=== PATIENT | female | born 1985 | race Caucasian/White ===

== ENCOUNTER 2017-10-10 13:46 | Observation (INO) ==
[2017-10-10] MEDS ORDERED: 0.9 % Sodium Chloride 1,000 ML IVC ONE ×2 (14:27→18:02)
[2017-10-10] MEDS ORDERED: *HR* Promethazine 25 MG/ML VIAL IVP ONE (14:27)
[2017-10-10] MEDS ORDERED: *HR* Nalbuphine 20 MG/ML AMPUL IVP PRN (14:28)
--- NOTE | 2017-10-10 14:31 | Emergency Department Note ---
Disposition Clinical Impression: Pyelonephritis, Right flank pain Disposition: Admitted As Inpatient Condition: Good Referrals: NONE,PCP [Primary Care Provider] - Forms: ED Satisfaction Letter, Work/School Release Time of Disposition: 18:02 Abdominal Pain HPI - General Chief Complaint: ED Abdominal Pain Stated Complaint: Right Abd Pain / LOVELACE Time Seen by Provider: 10/10/17 13:55 Source: patient Mode of arrival: ambulatory Limitations: no limitations Nursing Notes Reviewed: Yes Vital Signs Reviewed: Yes - History of Present Illness HPI Narrative: 31-year-old female presents emergency room for right-sided abdominal pain. Started in the right flank and radiated forward. She passed a kidney stone Harman morning. She still having a little bit of intermittent right-sided pain. She also complaining of a migraine headache. She states she has a history of kidney stones in the past. She denies any vomiting. No fevers or chills or Reiger's. No urinary complaints today. No GI complaints. No modifying factors. Pain Scale: 8 - Related Data Previous Rx's Medication Instructions Recorded Fluconazole [Diflucan] 150 mg PO Q72H #2 tablet 03/11/16 metroNIDAZOLE [Flagyl] 500 mg PO BID #14 tablet 03/11/16 Clotrimazole/Betamethasone Dip 15 gm TP BID 14 Days cream..g. 05/13/16 [Lotrisone Cream] Hydrocortisone 1% OINT [Cortaid] 1 appl TP BID 14 Days tube 05/13/16 Fexofenadine HCl 180 mg PO DAILY PRN #30 tablet 09/02/16 metroNIDAZOLE [Flagyl] 500 mg PO BID #14 tablet 09/02/16 Phenazopyridine HCl [Pyridium] 200 mg PO TIDAC #6 tab 02/11/17 Sulfamethoxazole/Trimeth DS 1 each PO BID #14 tablet 02/11/17 [Bactrim DS] metroNIDAZOLE [Flagyl] 2,000 mg PO ONCE 1 Days tablet 02/11/17 Diclofenac Sodium [Voltaren] 50 mg PO Q8HR #30 tablet. 02/12/17 metroNIDAZOLE [Flagyl] 500 mg PO BID #14 tablet 02/12/17 predniSONE [PredniSONE] 60 mg PO DAILY #15 tablet 02/12/17 Nitrofurantoin (BID) [Macrobid] 100 mg PO BID #14 capsule 08/16/17 metroNIDAZOLE [Flagyl] 500 mg PO BID #14 tablet 08/16/17 Allergies Allergy/AdvReac Type Severity Reaction Status Date / Time meperidine [From Demerol] Allergy Rash Verified 03/20/15 13:51 Penicillins AdvReac Vomiting Verified 03/20/15 13:51 All systems ED: reviewed and negative except as stated. Constitutional: Reports: as per HPI Eyes: Reports: as per HPI Cardiovascular: Reports: as per HPI Respiratory: Reports: as per HPI Gastrointestinal: Reports: abdominal pain Genitourinary: Reports: as per HPI Musculoskeletal: Reports: as per HPI, back pain Integumentary: Reports: as per HPI Neurological: Reports: as per HPI Psychiatric: Reports: as per HPI Endocrine: Reports: as per HPI Hematological/Lymphatic: Reports: as per HPI Allergic/Immunologic: Reports: as per HPI Abdominal Pain PMH - Past Medical History Medical history: Reports: kidney stones, other Female Surgical History: Reports: SPINNER CONTINUOUS history: Reports: no SPINNER CONTINUOUS history Psychiatric history: Reports: no psych history - Social History Smoking status: Current every day smoker Alcohol use: Reports: none Drug use: Reports: none Physical Exam - General Limitations: no limitations General appearance: alert - Head Head exam: atraumatic, normocephalic - Eye Eye exam: Present: normal appearance - Neck Neck exam: Present: normal inspection - Chest Chest inspection: Present: normal inspection - Respiratory Respiratory exam: Present: normal lung sounds bilaterally - Cardiovascular Cardiovascular exam: Present: regular rate, normal rhythm - Abdominal Exam Abdominal exam: Present: tenderness (Tenderness to the right side of her abdomen extending to the right flank. No guarding. No peritoneal signs.) - Extremities Exam Extremities exam: Present: normal inspection - Expanded Lower Extremity Exam Hip/Pelvis exam: Present: normal inspection - Neurological Exam Neurological exam: Present: alert, oriented X3 - Psychiatric Psychiatric exam: Present: normal affect, normal mood Course Vital Signs Temperature 99.3 F 10/10/17 13:48 Pulse Rate 146 10/10/17 13:48 Respiratory Rate 18 10/10/17 13:48 Blood Pressure 117/78 10/10/17 13:48 O2 Sat by Pulse Oximetry 97 10/10/17 13:48 Temperature 99.3 F 10/10/17 13:48 Pulse Rate 146 10/10/17 13:48 Respiratory Rate 18 03/04/18 13:48 Blood Pressure 117/78 10/10/17 13:48 O2 Sat by Pulse Oximetry 97 10/10/17 13:48 Oxygen Delivery Oxygen Delivery Room Air Abdominal Pain - MDM Narrative Medical decision making narrative: Patient has evidence of a pyelonephritis on the CT scan. She also has evidence of a urinary tract infection. White count 13,000. admitted for IV antibiotics. - Medical Records Medical records reviewed: Yes I reviewed the patient's medical records. - Lab Data Lab results reviewed: Yes I reviewed the patient's lab results. Result diagrams: 10/10/17 14:33 10/10/17 14:33 Lab Results 10/10/17 10/10/17 10/10/17 Range/Units 14:33 14:33 16:22 WBC 13.1 H (4.3-11.1) K/mcL RBC 4.01 (3.82-4.97) M/mcL Hgb 13.3 (11.5-15.4) g/dL Hct 38.6 (35.3-44.9) % MCV 96.3 (83.0-100.0) fL MCH 33.2 (28.0-33.3) pg MCHC 34.5 (31.6-35.5) g/dL RDW 11.1 L (11.5-14.5) % Plt Count 151 (140-400) K/mcL MPV 10.8 (9.4-12.4) fL Immature Gran % 0.5 (0-4) % Seg Neutrophils % 88.0 % Lymphocytes % 3.5 % Monocytes % 7.7 % Eosinophils % 0.2 % Basophils % 0.1 % Neutrophils # 11.5 H (1.6-8.9) K/mcL Lymphocytes # 0.5 L (0.6-4.6) K/mcL Monocytes # 1.0 (0.0-1.3) K/mcL Eosinophils # 0.0 (0.0-0.6) K/mcL Basophils # 0.0 (0.0-0.2) K/mcL Sodium 131 L (136-145) mEq/L Potassium 3.9 (3.5-5.1) mEq/L Chloride 103 (98-107) mEq/L Carbon Dioxide 22 L (23-29) mEq/L BUN 14 (6-20) mg/dL Creatinine 0.67 (0.60-1.20) mg/dL Est GFR ( Amer) > 60 (> 60) Est GFR (Non-Af Amer) > 60 (> 60) BUN/Creatinine Ratio 21 (6-26) Glucose 145 H (70-105) mg/dL Calculated Osmolality 275 L (280-300) Calcium 9.2 (8.6-10.3) mg/dL Total Bilirubin 0.4 (0.3-1.0) mg/dL Direct Bilirubin 0.1 (0.0-0.2) mg/dL Indirect Bilirubin 0.3 (0.0-1.2) mg/dL AST 14 (13-39) Units/L ALT 14 (7-52) Units/L Alkaline Phosphatase 80 (34-104) Units/L Serum Total Protein 6.6 (6.4-8.9) g/dL Albumin 3.8 (3.5-5.7) g/dL Globulin 2.8 (2.4-3.5) g/dL Albumin/Globulin Ratio 1.4 (1.1-2.2) Lipase < 3 L (11-82) Units/L Urine Color Yellow (Yellow) Urine Clarity Cloudy A (Clear) Urine pH 8.0 (5.0-8.0) pH Units Ur Specific [place] 1.021 (1.010-1.025) Urine Protein 100 H (Neg-Trace) mg/dL Urine Glucose (UA) Normal (Normal) mg/dL Urine Ketones Negative (Negative) mg/dL Urine Blood Moderate H (Negative) Urine Nitrite Negative (Negative) Urine Bilirubin Negative (Negative) Urine Urobilinogen Normal (Normal) mg/dL Ur Leukocyte Esterase Small H (Negative) Urine Microscopic RBC 30-50 H (0-3) per hpf Urine Microscopic WBC 30-50 H (0-3) per hpf Ur Squamous Epith Cells Many H (None-Few) per lpf Urine Bacteria Many H (None-Few) per hpf Hyaline Casts Few (None-Few) per lpf Ur Culture Indicated? NO. (NO) Urine Test (Negative) 10/10/17 Range/Units 16:22 WBC (4.3-11.1) K/mcL RBC (3.82-4.97) M/mcL Hgb (11.5-15.4) g/dL Hct (35.3-44.9) % MCV (83.0-100.0) fL MCH (28.0-33.3) pg MCHC (31.6-35.5) g/dL RDW (11.5-14.5) % Plt Count (140-400) K/mcL MPV (9.4-12.4) fL Immature Gran % (0-4) % Seg Neutrophils % % Lymphocytes % % Monocytes % % Eosinophils % % Basophils % % Neutrophils # (1.6-8.9) K/mcL Lymphocytes # (0.6-4.6) K/mcL Monocytes # (0.0-1.3) K/mcL Eosinophils # (0.0-0.6) K/mcL Basophils # (0.0-0.2) K/mcL Sodium (136-145) mEq/L Potassium (3.5-5.1) mEq/L Chloride (98-107) mEq/L Carbon Dioxide (23-29) mEq/L BUN (6-20) mg/dL Creatinine (0.60-1.20) mg/dL Est GFR ( Amer) (> 60) Est GFR (Non-Af Amer) (> 60) BUN/Creatinine Ratio (6-26) Glucose (70-105) mg/dL Calculated Osmolality (280-300) Calcium (8.6-10.3) mg/dL Total Bilirubin (0.3-1.0) mg/dL Direct Bilirubin (0.0-0.2) mg/dL Indirect Bilirubin (0.0-1.2) mg/dL AST (13-39) Units/L ALT (7-52) Units/L Alkaline Phosphatase (34-104) Units/L Serum Total Protein (6.4-8.9) g/dL Albumin (3.5-5.7) g/dL Globulin (2.4-3.5) g/dL Albumin/Globulin Ratio (1.1-2.2) Lipase (11-82) Units/L Urine Color (Yellow) Urine Clarity (Clear) Urine pH (5.0-8.0) pH Units Ur Specific [place] (1.010-1.025) Urine Protein (Neg-Trace) mg/dL Urine Glucose (UA) (Normal) mg/dL Urine Ketones (Negative) mg/dL Urine Blood (Negative) Urine Nitrite (Negative) Urine Bilirubin (Negative) Urine Urobilinogen (Normal) mg/dL Ur Leukocyte Esterase (Negative) Urine Microscopic RBC (0-3) per hpf Urine Microscopic WBC (0-3) per hpf Ur Squamous Epith Cells (None-Few) per lpf Urine Bacteria (None-Few) per hpf Hyaline Casts (None-Few) per lpf Ur Culture Indicated? (NO) Urine Test Negative (Negative) - Radiology Data Radiology results reviewed: Yes I reviewed the patient's radiology results. Critical Care Time Critical Care Time: No
[2017-10-10 15:06] LABS: Alanine Aminotransferase 14 Units/L (7-52); Albumin 3.8 g/dL (3.5-5.7); Albumin/Globulin Ratio 1.4 (1.1-2.2); Alkaline Phosphatase 80 Units/L (34-104); Aspartate Amino Transferase 14 Units/L (13-39); BUN/Creatinine Ratio 21 (6-26); Bilirubin,Direct 0.1 mg/dL (0.0-0.2); Bilirubin,Indirect 0.3 mg/dL (0.0-1.2); Bilirubin,Total 0.4 mg/dL (0.3-1.0); Blood Urea Nitrogen 14 mg/dL (6-20); Calcium 9.2 mg/dL (8.6-10.3); Carbon Dioxide 22 mEq/L (23-29); Chloride 103 mEq/L (98-107); Globulin 2.8 g/dL (2.4-3.5); Glucose 145 mg/dL (70-105); Lipase < 3 Units/L (11-82); Osmolality,Calculated 275 (280-300); Potassium 3.9 mEq/L (3.5-5.1); Sodium 131 mEq/L (136-145); Total Protein 6.6 g/dL (6.4-8.9); eGFR For African Americans > 60 (> 60); eGFR For Non-African Americans > 60 (> 60)
[2017-10-10 15:11] LABS: Basophils % 0.1 %; Eosinophils % 0.2 %; Hematocrit 38.6 % (35.3-44.9); Hemoglobin 13.3 g/dL (11.5-15.4); Immature Granulocytes % 0.5 % (0-4); Lymphocytes # 0.5 K/mcL (0.6-4.6); Lymphocytes % 3.5 %; Mean Corpuscular HGB Conc 34.5 g/dL (31.6-35.5); Mean Corpuscular Hemoglobin 33.2 pg (28.0-33.3); Mean Corpuscular Volume 96.3 fL (83.0-100.0); Mean Platelet Volume 10.8 fL (9.4-12.4); Monocytes % 7.7 %; Neutrophils # 11.5 K/mcL (1.6-8.9); Platelet Count 151 K/mcL (140-400); Red Blood Count 4.01 M/mcL (3.82-4.97); Red Cell Distribution Width 11.1 % (11.5-14.5)
[2017-10-10 16:52] LABS: Bilirubin,Urine Negative (Negative); Blood,Urine Moderate (Negative); Clarity,Urine Cloudy (Clear); Color,Urine Yellow (Yellow); Glucose,Urine (UA) Normal (Normal); Ketones,Urine Negative (Negative); Leukocyte Esterase,Urine Small (Negative); Nitrite,Urine Negative (Negative); Protein,Urine 100 mg/dL (Neg-Trace); Specific Gravity,Urine 1.021 (1.010-1.025); Urobilinogen,Urine Normal (Normal)
[2017-10-10 16:55] LABS: Bacteria,Urine Many per hpf (None-Few); Hyaline Casts,Urine Few per lpf (None-Few); RBC,Urine 30-50 per hpf (0-3); Squamous Epithelial Cell,Urine Many per lpf (None-Few); WBC,Urine 30-50 per hpf (0-3)
[2017-10-10] MEDS ORDERED: *HR* FentaNYL (PF) 100 MCG/2 ML VIAL IVP ONE ×2 (18:00→19:56)
[2017-10-10] MEDS ORDERED: cefTRIAXone 1,000 MG in Water for inj. (sterile) 20 ML 10 ML IVP ONE (18:00)
[2017-10-10] MEDS ORDERED: Ibuprofen 800 MG TABLET PO ONE (19:45)
[2017-10-10] MEDS ORDERED: Naloxone 0.4 MG/ML INJ IVP PRN (21:01)
[2017-10-10] MEDS ORDERED: Ondansetron 4 MG/2 ML VIAL IVP PRN (21:06)
--- NOTE | 2017-10-10 22:07 | Internal Med History&Physical ---
Date of Encounter: 10/10/17 Time of Encounter: 20:00 Assessment and Plan (1) Kidney stone Current visit: Yes Status: Acute (2) DVT prophylaxis Current visit: Yes Status: Acute Patient is young and ambulating, no anticoagulation at this point (3) Pyelonephritis Current visit: Yes Status: Acute CT abdomen shows no obstruction. Will continue Rocephin IV. Encourage patient to drink water. Follow-up urine culture (4) Tobacco abuse Current visit: Yes Status: Acute Nicotine patch. Smoking cessation education Internal Medicine - H&P: HPI Chief complaint: Right flank pain Admitted From: Home Plans for Post Hospital Care: Home History of present illness: Ms. Nguyen is a 31 year old female with history of kidney stone, tobacco abuse, presented to ER for right-sided flank pain for 1 day. Patient said on Wednesday, she feels she has passed small stones in her urine. Since Wednesday, she feels right-sided flank pain radiated to back. The pain is constant and getting worse gradually. Patient has a fever. Patient denies nausea vomiting diarrhea. In ER, CT abdomen shows possible right-sided pyelonephritis, without signs of hydronephrosis or hydroureterosis. Patient was admitted as acute pyelonephritis Past Med Surg Social Fam HX - Past Medical History Medical history: kidney stones, other Psychiatric history: no psych history - Past Surgical History Surgical History: - Social History Smoking Status: Current every day smoker Packs per day: 0.5 Smokeless Tobacco Status: No Alcohol use: none Drug use: none - Family History Mother Hx Family Cancer: Yes (lung) Internal Medicine - H&P: Meds Fluconazole [Diflucan] 150 mg PO Q72H #2 tablet 03/11/16 [Rx] metroNIDAZOLE [Flagyl] 500 mg PO BID #14 tablet 03/11/16 [Rx] Clotrimazole/Betamethasone Dip [Lotrisone Cream] 15 gm TP BID 14 Days cream..g. 05/13/16 [Rx] Hydrocortisone 1% OINT [Cortaid] 1 appl TP BID 14 Days tube 05/13/16 [Rx] Fexofenadine HCl 180 mg PO DAILY PRN #30 tablet 09/02/16 [Rx] metroNIDAZOLE [Flagyl] 500 mg PO BID #14 tablet 09/02/16 [Rx] Phenazopyridine HCl [Pyridium] 200 mg PO TIDAC #6 tab 02/11/17 [Rx] Sulfamethoxazole/Trimeth DS [Bactrim DS] 1 each PO BID #14 tablet 02/11/17 [Rx] metroNIDAZOLE [Flagyl] 2,000 mg PO ONCE 1 Days tablet 02/11/17 [Rx] Diclofenac Sodium [Voltaren] 50 mg PO Q8HR #30 tablet. 02/12/17 [Rx] metroNIDAZOLE [Flagyl] 500 mg PO BID #14 tablet 02/12/17 [Rx] predniSONE [PredniSONE] 60 mg PO DAILY #15 tablet 02/12/17 [Rx] Nitrofurantoin (BID) [Macrobid] 100 mg PO BID #14 capsule 08/16/17 [Rx] metroNIDAZOLE [Flagyl] 500 mg PO BID #14 tablet 08/16/17 [Rx] 3 Allergy/AdvReac Type Severity Reaction Status Date / Time meperidine [From Demerol] Allergy Rash Verified 03/20/15 13:51 Penicillins AdvReac Vomiting Verified 03/20/15 13:51 All Systems PM: A 10-system review of systems was performed and is negative for pertinent findings except as documented above in the HPI. - Constitutional Vitals: Temp Pulse Resp BP Pulse Ox 99.9 F H 105 16 146/81 96 10/10/17 20:26 10/10/17 20:26 10/10/17 20:26 10/10/17 20:26 10/10/17 20:26 General appearance: Present: A&O X 3, no acute distress, answers questions appropriately - Head Head exam: Present: atraumatic, normocephalic - Eye Eye exam: Present: PERRL, conjuntiva pink, sclera anicteric Pupils: Present: PERRL - Neck Neck exam general surgery: Present: supple, trachea midline. Absent: lymphadenopathy - Respiratory Respiratory exam: Present: CTAB. Absent: accessory muscle use, rales, rhonchi, wheezes - Cardiovascular Cardiovascular exam: Present: RRR, +S1, +S2. Absent: diastolic murmur, gallop, rubs, systolic murmur - GI/Abdominal GI/Abdominal exam: Present: normal bowel sounds, soft, no peritoneal signs. Absent: distended, tenderness Additional comments: CVAT positive on the right side - Extremities Exam Extremities exam: Present: warm, radial pulses palpable and symmetrical. Absent : calf tenderness, cyanotic, pedal edema - Neurological Exam Neurological exam: Present: CN II-XII intact, oriented X3, no focal deficits. Absent: pronater drift, facial droop, speech deficit - Skin Skin exam: Present: dry, intact Internal Med - H&P Results - Labs CBC & Chem 7: 10/10/17 14:33 10/10/17 14:33
[2017-10-10] MEDS: Nicotine 14 MG PATCH.TD24 TD SCH (22:31)
[2017-10-11] MEDS: cefTRIAXone 1,000 MG in Water for inj. (sterile) 20 ML 10 ML IVP SCH (08:32)
[2017-10-11] MEDS: Nicotine 14 MG PATCH.TD24 TD SCH (08:32)
[2017-10-11] MEDS: *HR* HYDROcodone/Acet 5/325 mg TABLET PO PRN ×3 (08:41→22:02)
[2017-10-11 09:55] LABS: BUN/Creatinine Ratio 23 (6-26); Blood Urea Nitrogen 14 mg/dL (6-20); Calcium 8.6 mg/dL (8.6-10.3); Carbon Dioxide 22 mEq/L (23-29); Chloride 111 mEq/L (98-107); Glucose 117 mg/dL (70-105); Osmolality,Calculated 280 (280-300); Potassium 3.6 mEq/L (3.5-5.1); Sodium 134 mEq/L (136-145); eGFR For African Americans > 60 (> 60); eGFR For Non-African Americans > 60 (> 60)
[2017-10-11 10:27] LABS: Basophils % 0.3 %; Eosinophils # 0.1 K/mcL (0.0-0.6); Eosinophils % 1.2 %; Hematocrit 39.4 % (35.3-44.9); Hemoglobin 13.1 g/dL (11.5-15.4); Immature Granulocytes % 0.6 % (0-4); Lymphocytes # 0.6 K/mcL (0.6-4.6); Lymphocytes % 8.2 %; Mean Corpuscular HGB Conc 33.2 g/dL (31.6-35.5); Mean Corpuscular Hemoglobin 32.6 pg (28.0-33.3); Mean Platelet Volume 11.5 fL (9.4-12.4); Monocytes # 0.9 K/mcL (0.0-1.3); Monocytes % 11.5 %; Nucleated Red Blood Cells 0.3 /100 WBC (0); Platelet Count 127 K/mcL (140-400); Red Blood Count 4.02 M/mcL (3.82-4.97); Red Cell Distribution Width 11.2 % (11.5-14.5); Segmented Neutrophils % 78.2 %
[2017-10-11] MEDS: Acetaminophen 325 MG TABLET PO PRN ×2 (13:18→22:11)
--- NOTE | 2017-10-11 17:04 | Internal Med Progress Note ---
Date of Encounter: 10/11/17 Time of Encounter: 17:02 - Assessment and plan (1) Kidney stone Current Visit: Yes Status: Acute Assessment and plan: History of kidney stone who presented with right sided flank pain for duration of one day. She felt she passed some stones on Wednesday. (2) Pyelonephritis Current Visit: Yes Status: Acute Assessment and plan: CT of the abdomen showed no obstruction, hydronephrosis or hydroureteronephrosis , possible right-sided pyelonephritis Continue Rocephin Urine was not sent for culture Will repeat urinalysis WBCs have normalized MAXIMUM TEMPERATURE 99.2 (3) Tobacco abuse Current Visit: Yes Status: Acute Assessment and plan: Nicotine patch and smoking cessation education (4) DVT prophylaxis Current Visit: Yes Status: Acute Assessment and plan: Ambulation, encouraged patient to get out of bed - Subjective Interval history: Patient is lying in bed, reports intermittent headache and some right flank pain intermittently as well. She denies chest pain, shortness of breath, fever , chills, abdominal pain, burning on urination, nausea or vomiting. - Constitutional Vitals: Temp Pulse Resp BP Pulse Ox 98.8 F 86 14 114/75 98 10/11/17 15:37 10/11/17 15:37 10/11/17 15:37 10/11/17 15:37 10/11/17 15:37 General appearance: Present: cooperative, A&O X 3, pleasant, no acute distress, answers questions appropriately - Head Head exam: Present: atraumatic, normocephalic - Eye Eye exam: Present: PERRL, conjuntiva pink, sclera anicteric Pupils: Present: PERRL - Neck Neck exam general surgery: Present: supple, trachea midline. Absent: lymphadenopathy - Respiratory Respiratory exam: Present: CTAB. Absent: accessory muscle use, rales, rhonchi, wheezes - Cardiovascular Cardiovascular exam: Present: RRR, +S1, +S2. Absent: diastolic murmur, gallop, rubs, systolic murmur - GI/Abdominal GI/Abdominal exam: Present: normal bowel sounds, soft, no peritoneal signs. Absent: distended, tenderness Additional comments: Right flank pain to gentle palpation. - Extremities Exam Extremities exam: Present: warm, radial pulses palpable and symmetrical. Absent : calf tenderness, cyanotic, pedal edema - Neurological Exam Neurological exam: Present: CN II-XII intact, oriented X3, no focal deficits. Absent: pronater drift, facial droop, speech deficit - Skin Skin exam: Present: dry, intact, normal color, warm Internal Medicine: Result - Labs CBC & Chem 7: 10/11/17 08:28 10/11/17 08:28 Labs: Short CBC 10/11/17 Range/Units 08:28 WBC 7.7 (4.3-11.1) K/mcL Hgb 13.1 (11.5-15.4) g/dL Hct 39.4 (35.3-44.9) % Plt Count 127 L (140-400) K/mcL Neutrophils # 6.0 (1.6-8.9) K/mcL BMP 10/11/17 08:28 Sodium 134 L Potassium 3.6 Chloride 111 H Carbon Dioxide 22 L BUN 14 Creatinine 0.61 Glucose 117 H Calcium 8.6 Consult Discharge Plan - Plan Referrals: NONE,PCP [Primary Care Provider] -
[2017-10-11 20:06] LABS: Bilirubin,Urine Negative (Negative); Blood,Urine Small (Negative); Clarity,Urine Clear (Clear); Color,Urine Yellow (Yellow); Glucose,Urine (UA) Normal (Normal); Ketones,Urine Negative (Negative); Leukocyte Esterase,Urine Moderate (Negative); Nitrite,Urine Negative (Negative); PH,Urine 7.5 pH Units (5.0-8.0); Protein,Urine Trace mg/dL (Neg-Trace); Specific Gravity,Urine 1.019 (1.010-1.025); Urobilinogen,Urine Normal (Normal)
[2017-10-11 20:07] LABS: Bacteria,Urine None Seen per hpf (None-Few); Hyaline Casts,Urine None Seen per lpf (None-Few); Squamous Epithelial Cell,Urine Many per lpf (None-Few); WBC,Urine 15-30 per hpf (0-3)
[2017-10-12 07:06] VITALS: BP 93/55
[2017-10-12] MEDS: *HR* HYDROcodone/Acet 5/325 mg TABLET PO PRN (09:11)
[2017-10-12] MEDS: cefTRIAXone 1,000 MG in Water for inj. (sterile) 20 ML 10 ML IVP SCH (09:16)
[2017-10-12] MEDS: Nicotine 14 MG PATCH.TD24 TD SCH (09:16)
--- NOTE | 2017-10-12 09:18 | Discharge Summary ---
- NOTES TO OUTPATIENT PROVIDER Notes to Outpatient Provider: f/u with PCP Date of Encounter: 10/12/17 Time of Encounter: 09:16 - Discharge Diagnosis (1) Kidney stone Priority: Primary Status: Acute Comments: History of kidney stone who presented with right sided flank pain for duration of one day. She felt she passed some stones on Wednesday. (2) Pyelonephritis Priority: Primary Status: Acute Comments: CT of the abdomen showed no obstruction, hydronephrosis or hydroureteronephrosis , possible right-sided pyelonephritis Continue Rocephin Urine was not sent for culture repeat urinalysis WBC decreased. no bacteria WBCs have normalized MAXIMUM TEMPERATURE 99.0 (3) Tobacco abuse Priority: Primary Status: Acute Comments: cessation education Hospital course: Ms. Nguyen is a 31 year old female with a history of kidney stones and tobacco abuse who presented to the ER after 1 day of right sided flank pain. She still felt that she passed some kidney stones in her urine on Wednesday. Since Wednesday she had felt some right-sided flank pain radiating to her back which became constant and gradually worse. She had a fever. She had no nausea vomiting or diarrhea. CT abdomen showed possible right-sided pyelonephritis without signs of hydronephrosis or hydroureteronephrosis she was admitted as acute pyelonephritis and placed on IV Rocephin. She was encouraged to drink water. Follow-up culture was not obtained as her urine had many squamous epithelial cells. Repeated the urinalysis last evening with no bacteria seen of few microscopic wbc's 15-30 which was decreased from 30-50 on the original urinalysis. Her headache has resolved. Her flank pain is much less. She has no nausea. She has been afebrile. Discharge discussed with: patient, nurse Time spent discussing smoking cessation with patient: 3 to 10 minutes - Time Spent with Patient Total time spent providing and/or coordinating discharge services: Less than 30 minutes Specific discharge activities: Drink plenty of fluids. Obtain and follow up with her PCP. Follow-up with urology - Discharge Medications Prescriptions: Nicotine Patch [Nicoderm] 14 mg TD DAILY 14 Days #1 patch.td24 Sulfamethoxazole/Trimeth DS [Bactrim DS] 1 each PO BID 12 Days #24 tablet Home Medications: Acetaminophen [Tylenol] 650 mg PO Q6HR PRN tablet 10/12/17 [Rx] Nicotine Patch [Nicoderm] 14 mg TD DAILY 14 Days #1 patch.td24 10/12/17 [Rx] Sulfamethoxazole/Trimeth DS [Bactrim DS] 1 each PO BID 12 Days #24 tablet [Rx] Allergies/Adverse Reactions: 3 Allergy/AdvReac Type Severity Reaction Status Date / Time meperidine [From Demerol] Allergy Rash Verified 03/20/15 13:51 Penicillins AdvReac Vomiting Verified 03/20/15 13:51 Date of admission: 10/10/17 19:35 Primary care physician: PCP NONE Discharging clinician: Rody López Anticipated date of discharge: 10/12/17 - Constitutional Vitals: Temp Pulse Resp BP Pulse Ox 99.0 F 95 15 93/55 97 10/12/17 07:04 10/12/17 07:04 10/12/17 07:04 10/12/17 07:04 10/12/17 07:04 General appearance: Present: cooperative, A&O X 3, pleasant, no acute distress, answers questions appropriately - Head Head exam: Present: atraumatic, normocephalic - Eye Eye exam: Present: PERRL, conjuntiva pink, sclera anicteric Pupils: Present: PERRL - Neck Neck exam general surgery: Present: supple, trachea midline. Absent: lymphadenopathy - Respiratory Respiratory exam: Present: CTAB. Absent: accessory muscle use, rales, rhonchi, wheezes - Cardiovascular Cardiovascular exam: Present: RRR, +S1, +S2. Absent: diastolic murmur, gallop, rubs, systolic murmur - GI/Abdominal GI/Abdominal exam: Present: normal bowel sounds, soft, no peritoneal signs. Absent: distended, tenderness Additional comments: Mild right flank pain to palpation - Extremities Exam Extremities exam: Present: warm, radial pulses palpable and symmetrical. Absent : calf tenderness, cyanotic, pedal edema - Neurological Exam Neurological exam: Present: CN II-XII intact, oriented X3, no focal deficits. Absent: pronater drift, facial droop, speech deficit - Skin Skin exam: Present: dry, intact, normal color, warm - Patient Status Disposition: Home, Self-Care Condition: Good Functional capacity at discharge: independent ambulation Overall status at discharge: patient is progressing back to baseline - Discharge Instructions Follow Up With: NONE,PCP [Primary Care Provider] - Additional Instructions: f/u with urology - Diet and Activity Activity: resume usual activities as tolerated Diet: advance to your usual diet
== END 2017-10-12 10:28 | disposition home or self-care (01) ==
LOC: 3BNU 13:46 → EMEROO 13:46 → SUATTDRO 19:35 → 3BNU 20:21
PROVIDERS: ADMIT Internal Medicine; ATTEND Nurse Practitioner Family